=== PATIENT | female | born 1965 | race Caucasian/White ===

== ENCOUNTER → 2018-01-04 | Outpatient (CLI) | payer OTHER ==
--- NOTE | 2018-01-09 12:20 | RAD ---
DATE: 01/04/2018 EXAM: DIGITAL SCREEN BILAT W/CAD HISTORY: Routine screening COMPARISON: 11/17/2016 This study was interpreted with the benefit of Computerized Aided Detection (CAD). The breast parenchyma shows scattered fibroglandular densities. Breast parenchyma level B. FINDINGS: An old breast biopsy marker biopsy marker is again noted laterally in the left breast. There is an adjacent stable small nodule. There is a small unchanged oval-shaped nodule in the anterolateral aspect of the right breast. An additional small, stable lymph node type density is again noted posterolaterally in the right breast. No new or enlarging breast densities are seen. Scattered benign type calcifications are present. No suspicious microcalcifications have developed. IMPRESSION: Stable mammograms without evidence of malignancy. BI-RADS CATEGORY: 2 BENIGN FINDING(S) RECOMMENDED FOLLOW-UP: 12M 12 MONTH FOLLOW-UP PQRS compliance statement: Patient information was entered into a reminder system with a target due date for the next mammogram. Mammography is a sensitive method for finding small breast cancers, but it does not detect them all and is not a substitute for careful clinical examination. A negative mammogram does not negate a clinically suspicious finding and should not result in delay in biopsying a clinically suspicious abnormality. "Our facility is accredited by the [employer] Mammography [employer]."
== END | disposition home or self-care (01) ==
LOC: MAMMO 07:46
PROVIDERS: ATTEND Physician Assistant
DX: Z12.31 Encounter for screening mammogram for malignant neoplasm of breast (principal)
CPT/HCPCS: 77067

== ENCOUNTER → 2019-05-05 | Outpatient (CLI) | payer OTHER ==
--- NOTE | 2019-05-06 16:57 | RAD ---
DATE: 05/05/2019 EXAM: DIGITAL SCREEN BILAT W/CAD HISTORY: Routine screening COMPARISON: 11/17/2016, 01/04/2018 mammographic exams This study was interpreted with the benefit of Computerized Aided Detection (CAD). Breast Density: SCATTERED The breast parenchyma shows scattered fibroglandular densities. Breast parenchyma level B. FINDINGS: Biopsy clip involves the left upper outer breast. No suspicious calcification, mass, or distortion. Small masses are stable. IMPRESSION: Stable BI-RADS CATEGORY: 1 NEGATIVE RECOMMENDED FOLLOW-UP: 12M 12 MONTH FOLLOW-UP PQRS compliance statement: Patient information was entered into a reminder system with a target due date in one year for the next mammogram. Mammography is a sensitive method for finding small breast cancers, but it does not detect them all and is not a substitute for careful clinical examination. A negative mammogram does not negate a clinically suspicious finding and should not result in delay in biopsying a clinically suspicious abnormality. "Our facility is accredited by the [employer] Mammography [employer]."
== END | disposition home or self-care (01) ==
LOC: MAMMO 07:43
PROVIDERS: ATTEND Physician Assistant
DX: Z12.31 Encounter for screening mammogram for malignant neoplasm of breast (principal)
CPT/HCPCS: 77067

== ENCOUNTER → 2019-11-13 | Outpatient (CLI) | payer OTHER ==
--- NOTE | 2019-11-13 14:52 | RAD ---
PA and lateral chest x-ray without comparison for cough. FINDINGS: There is a calcified granuloma in the left lung base. No other lung parenchymal abnormalities are identified. Cardiomediastinum is grossly unremarkable. No soft tissue or osseous abnormalities are seen. IMPRESSION: 1. No acute cardiopulmonary abnormality. Electronically signed by: Jamie Mirza MD (11/13/2019 2:49 PM) [id number]
== END | disposition home or self-care (01) ==
LOC: DXRAD 10:38
PROVIDERS: ATTEND Family Medicine
DX: J84.10 Pulmonary fibrosis, unspecified (principal)
CPT/HCPCS: 71046